=== PATIENT | male | born 1935 | race Caucasian/White ===

== ENCOUNTER 2016-05-19 14:47 | Observation (INO) | payer OTHER ==
[~2016-05-19] VITALS: Ht 177.8 cm; Wt 137.0 kg
--- NOTE | 2016-05-19 17:57 | DIAGNOSTIC IMAGING REPORT ---
PROCEDURE: XR CHEST 1 VIEW INDICATION: FAILURE TO THRIVE TECHNIQUE: Portable AP view (1740 hours) COMPARISON: Compared to chest x-ray on 10/02/2015 FINDINGS: Allowing for suboptimal inspiration, there is mild volume loss at the lung bases. Lungs are otherwise clear. Heart and mediastinum are normal. Thorax is normal. IMPRESSION: 1. Allowing for suboptimal inspiration, negative chest.
--- NOTE | 2016-05-19 19:41 | ED ORDER SUMMARY ---
..... Patient: GRIS RAJPUT OrderSheet Merged With [facility] VisitID: [id number] [place] [address] 80y, M Registration Date/Time: 05/19/2016 ORDER SHEET Weight: 99 kg (stated) Allergies: None GENERAL ORDERS: Animal Eviscerator (Continuous) (15:11 05/19/2016 Sanjuanita MCMAHON) (15:23 RCollier R.N.) CBC w Diff Urgent (15:12 05/19/2016 Sanjuanita MCMAHON) (Ack 15:15 Junior) (16:45 RCollier R.N.) CMP Urgent (15:12 05/19/2016 Sanjuanita MCMAHON) (Ack 15:15 Junior) (16:45 RCollier R.N.) UA-Culture if indicated Urgent (15:12 05/19/2016 Sanjuanita MCMAHON) (Ack 15:15 Junior) (16:45 RCollier R.N.) Amylase Urgent (15:12 05/19/2016 Sanjuanita MCMAHON) (Ack 15:15 Junior) (16:45 RCollier R.N.) Lipase Urgent (15:12 05/19/2016 Sanjuanita MCMAHON) (Ack 15:15 Junior) (16:45 RCollier R.N.) CPK Urgent (15:12 05/19/2016 Sanjuanita MCMAHON) (Ack 15:15 Junior) (16:45 RCollier R.N.) Troponin-I Urgent (15:12 05/19/2016 Sanjuanita MCMAHON) (Ack 15:15 Junior) (16:45 RCollier R.N.) EKG - ER Stat (15:12 05/19/2016 Sanjuanita MCMAHON) (15:23 RCollier R.N.) Pulse oximeter (15:12 05/19/2016 Sanjuanita MCMAHON) (15:23 RCollier R.N.) Urine Drug Screen Urgent (15:34 05/19/2016 Sanjuanita MCMAHON) (Ack 15:41 Junior) (16:45 RCollier R.N.) TSH Urgent (16:36 05/19/2016 Sanjuanita MCMAHON) (Ack 16:53 Junior) (17:48 Tl R.N.) Chest 1V Urgent (16:54 05/19/2016 Sanjuanita MCMAHON) (Ack 16:55 Junior) (17:48 Tl R.N.) MEDICATION ORDERS: - (levothyroxine 125 g by mouth now) (20:36 05/19/2016 Sanjuanita MCMAHON) (Cancelled: Patient [id number] Faye R.N.) IV FLUIDS: IV NS : initial bolus 500 mL (1000 mL/hr), then 125 mL/hr for 4h (NOW); Urgent (15:12 05/19/2016 Sanjuanita MCMAHON) (Ack 15:13 Efrain R.N.) (16:45 Efrain R.N.) ORDER SHEET NOTES: [Electronically signed by Eran Guadarrama MD (21:19 05/19/2016)] [Electronically signed by Radha López R.N. (23:17 05/19/2016)] [Electronically locked/signed by Radha López R.N. (23:17 05/19/2016)]
--- NOTE | 2016-05-19 19:41 | ED CLINICAL REPORT ---
Clinical Report - Physicians/Mid Levels [facility] [address] [place] [address] 05/19/2016 14:51 Patient: GRIS RAJPUT Time Seen: 15:12. Arrived- By ambulance. Historian- patient and EMS personnel. History limited by vague historian. Physical Exam limited by poor cooperation. HISTORY OF PRESENT ILLNESS Chief Complaint: Altered mental status. This started today EMS was called to his house because he was on the floor at home and wanted help getting up. he was reportedly spitting up white phlegm. However, he subsequently refused transport. Apparently with his 's urging he eventually agreed to come in. (the patient was brought in by EMS with reports of increased confusion and agitation. Paramedics report that at his home he was lying in urine and was covered in feces. There was feces throughout the house as well. They report that they have contacted Adult Protective Services as they are concerned about an unsafe living situation. It is unclear whether he has been taking any of his medications. The patient appears very confused, hard of hearing and is not cooperative with a history or examination.). REVIEW OF SYSTEMS Unobtainable due to patient's uncooperativeness. PAST HISTORY Problems: Dehydration. Cellulitis. Tinea Cruris. Dementia. Changed Mental Status. Hypoglycemia. Lung Disease. Skin Rash. Weakness. Contusion. Hypomagnesemia. Failure To Thrive. COPD - Chronic Obstructive Pulmonary Disease. Cardiomegaly. Thyroid Disease. Gastroesophageal Reflux. Hyperlipidemia. Fall. Atypical Chest Pain. Obesity. Abnormal Liver Function Test. Hyponatremia. Diabetes Mellitus. Hypertension. Additional Surgeries: Appendectomy. Cholecystectomy. Hernia Repair. Knee Surgery. Tonsillectomy. Medications: Donepezil HCl Oral (Tablet 10 mg) 1/2 tablet, daily. Folic Acid Oral. Isosorbide Mononitrate ER Oral 30 mg , daily. Lantus SoloStar Subcutaneous 25 units, at night. Meds pulled from prior visit: pt. does not recall. NovoLOG Subcutaneous 5 units, before meals. PARoxetine HCl Oral (Tablet 40 mg) 1 tablet, daily. Synthroid Oral 125 mcg, daily. Tamsulosin HCl Oral 0.4 mg, daily. Allergies: None. SOCIAL HISTORY The patient lives with spouse. Has poor social support. FAMILY HISTORY Unable to obtain family medical history due to patient's altered mental status. ADDITIONAL NOTES The nursing notes have been reviewed. PHYSICAL EXAM Vital Signs: 05/19/2016 14:58 BP: 116/39. HR: 73. RR: 18. O2 saturation: 92%. Temp: 97.4 F. Messina-Landrum pain scale: 4/10. Have been reviewed. Appearance: The patient is confused and restless and appears agitated. Eyes: Pupils equal, round and reactive to light. ENT: Pharynx normal. Neck: Normal inspection. Neck supple. No meningeal signs or JVD. CVS: Normal heart rate and rhythm. Heart sounds normal. Respiratory: No respiratory distress. Breath sounds normal. Abdomen: No visible injury. Soft and nontender. Bowel sounds normal. No organomegaly. No mass. Obese. Skin: Skin warm and dry. Pallor. Extremities: Non-pitting edema of the lower extremities. Extremities exhibit normal ROM. No calf tenderness. LABS, X-RAYS, AND EKG EKG: Normal EKG. Rate: 77. Changes present when compared to prior EKG. (02 Oct 2015at that time the machine reported left axis deviation. Today's study is unremarkable.). The study has been independently viewed by me. Chest X-ray: (MPRESSION: 1. Allowing for suboptimal inspiration, negative chest.). The X-rays were interpreted by the radiologist and contemporaneously by me. Laboratory Tests: UA-Culture if indicated: (GARY: 05/19/2016 16:28) ( MsgRcvd 05/19/2016 17:05) Final results Test Result Flag Units (Reference) URINE COLOR YELLOW URINE APPEARANCE CLEAR URINE GLUCOSE NEGATIVE (NEGATIVE) URINE BILIRUBIN NEGATIVE (NEGATIVE) URINE KETONE NEGATIVE (NEGATIVE) URINE SPECIFIC GRAVITY >= 1.030 (1.010-1.030) URINE PH 5.5 (5.0-8.0) URINE PROTEIN 2+ (NEGATIVE) URINE UROBILINOGEN 0.2 EU/dL (0.2-1.0) URINE NITRITE NEGATIVE (NEGATIVE) URINE BLOOD 2+ (NEGATIVE) URINE LEUK ESTERASE NEGATIVE (NEGATIVE) URINE RBC 3-5 rbc/hpf (0-1) URINE WBC 3-5 wbc/hpf (0-1) URINE EPITHELIAL CELLS 3-5 EPI/hpf (0-5) URINE BACTERIA FEW (1+) (NONE SEEN) URINE COMMENT CULT NOT INDICATED 2+ [id number] HYALINE CAST/LPFURINE CULTURES ARE SET-UP BASED ON THE FOLLOWING CRITERIA:POSITIVE NITRITEPOSITIVE LEUKOCYTE ESTERASEGREATER THAN 10 WHITE BLOOD CELLSMODERATE (2+) OR GREATER BACTERIA CBC w Diff: (GARY: 05/19/2016 15:42) ( [facility] 05/19/2016 15:54) Final results Test Result Flag Units (Reference) WHITE BLOOD COUNT 8.9 K/uL (4.5-11.5) RED BLOOD COUNT 4.41 L M/uL (4.50-5.90) HEMOGLOBIN 13.3 L gm/dL (13.5-17.5) HEMATOCRIT 40.1 L % (41.0-53.0) MEAN CELL VOLUME 91 fL (80-100) MEAN CORPUSCULAR HGB 30 pg (26-34) MEAN CORPUSCULAR HGB CONC 33 g/dL (31-37) RED CELL DISTRIBUTION WIDTH 14.0 % (11.6-14.8) PLATELET COUNT 230 K/uL (150-400) NEUTROPHIL % 83.1 H % (50-75) LYMPH % 9.3 L % (25-40) MONO % 6.3 % (3-14) EOSINOPHIL % 1.1 % (0-4) BASOPHIL % 0.2 % (0-2) TSH: (GARY: 05/19/2016 15:42) ( [facility] 05/19/2016 17:03) Final results Test Result Flag Units (Reference) THYROID STIMULATING HORMONE 4.353 H uIU/mL (0.30-3.74) Urine Drug Screen: (GARY: 05/19/2016 16:28) ( [facility] 05/19/2016 16:48) Final results Test Result Flag Units (Reference) AMPHETAMINE/METHAMPHETAMINE NEGATIVE (NEGATIVE) BARBITURATE NEGATIVE (NEGATIVE) BENZODIAZEPINE NEGATIVE (NEGATIVE) CANNABINOID NEGATIVE (NEGATIVE) COCAINE NEGATIVE (NEGATIVE) ECSTASY NEGATIVE (NEGATIVE) METHADONE NEGATIVE (NEGATIVE) OPIATE NEGATIVE (NEGATIVE) The urine drug screen is a qualitative screening test fordrug overdose and abuse. All screen results should beconsidered as presumptive.Drugs screened for are as follows:BenzodiazepinesCocaineAmphetamines/MetamphetaminesTHC (Tetrahydrocannabinol)OpiatesBarbituratesEcstasyMethadonePositive results are unconfirmed. For confirmation, notifythe lab for the specimen to be sent to the reference lab.All confirmations must be performed by a differentmethodology.The ingestion of natural herbal and plant productscontaining Ephedra/Ephedra metabolites can produce in urineone or more substances capable of cross reacting withamphetamine/methamphetamine immunoassays. These testsprovide a preliminary result only. A more specificalternative chemical method must be used to obtain aconfirmed analytical result. CMP: (GARY: 05/19/2016 15:42) ( MsgRcvd 05/19/2016 16:11) Final results Test Result Flag Units (Reference) GLUCOSE 151 H mg/dL (70-110) BUN 42 H mg/dL (7-18) CREATININE 1.2 mg/dL (0.6-1.3) Estimated GFR >60 mL/min Estimated GFR- >60 mL/min Note: Persistent reduction over 3 months in eGFR<60 mL/min/1.73 m2 defines CKD. Patients with eGFR values>=60 mL/min/1.73 m2 may also have CKD if evidence ofpersistent proteinuria. Additional information may be foundat www.kidney.org. SODIUM 139 mmol/L (136-145) POTASSIUM 4.9 mmol/L (3.5-5.1) CHLORIDE 104 mmol/L (98-107) CARBON DIOXIDE 26 mmol/L (21-32) CALCIUM 8.4 L mg/dL (8.5-10.1) TOTAL PROTEIN 7.1 g/dL (6.4-8.2) ALBUMIN 2.9 L g/dL (3.3-5.0) BILIRUBIN, TOTAL 0.5 mg/dL (0.0-1.0) ALKALINE PHOSPHATASE 119 H U/L (46-116) AST (SGOT) 18 U/L (15-37) ALT (SGPT) 23 U/L (12-78) LIPASE 527 H U/L (73-393) AMYLASE 130 H U/L (25-115) CPK 89 U/L (24-260) TROPONIN I <0.05 ng/mL (0.00-1.5) TROPONIN REFERENCE RANGE:<0.1 NEGATIVE0.1-1.5 INDETERMINANT>1.5 POSITIVE . PROGRESS AND PROCEDURES Course of Care: Patient is stable. Discussed case with on-call health care provider, (Ishaan - consult performed in the ER). Reviewed test results and need for additional work-up. Agreed upon treatment plan, need for patient follow-up and decision to place in observation. Patient/family counseled. Old medical records reviewed. Disposition orders written (in Rhapsody). Disposition: Admitted. Observation. CLINICAL IMPRESSION Changed mental status. Pancreatitis. Hypothyroidism. 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 (Electronically signed by Eran Guadarrama MD 05/19/2016 21:19)
--- NOTE | 2016-05-19 19:41 | ED NURSING NOTES ---
Clinical Report - Nurses [facility] [address] [place] [address] 05/19/2016 14:51 Patient: GRIS RAJPUT TRIAGE Triage time 14:58. Acuity: LEVEL 3. Chief Complaint: NAUSEA and VOMITING. Alert. --15:06 Zaynab Luna R.N. 14:58 05/19/16. BP: 116/39. HR: 73. RR: 18. O2 saturation: 92% on room air. Temp: 97.4 F (oral). Messina-Landrum pain scale: 4/10. --15:06 Zaynab Luna R.N. Weight: 99 kg stated. Height/Length: 69 inches Per Patient. BMI: 32.3. --15:06 Zaynab Luna R.N. Medications Donepezil HCl Oral (Tablet 10 mg) 1/2 tablet, daily. Folic Acid Oral. Isosorbide Mononitrate ER Oral 30 mg , daily. Lantus SoloStar Subcutaneous 25 units, at night. Meds pulled from prior visit: pt. does not recall. NovoLOG Subcutaneous 5 units, before meals. PARoxetine HCl Oral (Tablet 40 mg) 1 tablet, daily. Synthroid Oral 125 mcg, daily. Tamsulosin HCl Oral 0.4 mg, daily. --14:59 Zaynab Luna R.N. Allergies None. --14:59 Zaynab Luna R.N. History Arrived by EMS. Primary physician (john). ( EMS was called to pts house because pt was on the floor at home and wanted help getting up. pt was vomiting and refused to transport, eventually agreed to come in.). This started today. 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 ( EMS reports they are notifying APS of living conditions, due to pt and being unable to care for self.). FUNCTIONAL ASSESSMENT: Functional assessment performed: uses wheelchair; cognitive impairment- senile dementia. --15:06 Zaynab Luna R.N. PROBLEMS: Cellulitis. Tinea Cruris. Dementia. Changed Mental Status. Lung Disease. Hypomagnesemia. COPD - Chronic Obstructive Pulmonary Disease. Cardiomegaly. Thyroid Disease. Gastroesophageal Reflux. Hyperlipidemia. Atypical Chest Pain. Obesity. Abnormal Liver Function Test. Diabetes Mellitus. --15:00 Zaynab Luna R.N. ADDITIONAL SURGERIES: Appendectomy. Cholecystectomy. Hernia Repair. Knee Surgery. Tonsillectomy. --15:00 Zaynab Luna R.N. Interventions ID band on patient. To treatment room. --15:06 Zaynab Luna R.N. PHYSICAL ASSESSMENT To room via stretcher. Patient gowned. GENERAL / NEURO / PSYCH: Alert. Appears in no acute distress. RESPIRATORY: Respirations not labored. Cough. CVS: Capillary refill less than 2 seconds. SKIN: Erythematous, weeping skin rash with an erythematous base located in skin folds and on the genitalia. --16:12 Zaynab Luna R.N. NURSING PROGRESS NOTES 15:43 05/19/2016 Site #1 started via IV in the right forearm with an 20g angiocath, with aseptic technique and good blood return; one attempt. Blood drawn: rainbow set. Labeled in the presence of the patient and sent to the lab. Saline lock flushed with 10 mL saline. --15:59 Izzy Rios R.N. 15:49 05/19/2016 Site #1 removed. Bandaid applied. --15:59 Izzy Rios R.N. 15:54 05/19/2016 Site #1 relocated to the left wrist with an 22g angiocath, with aseptic technique and good blood return; one attempt. Saline lock flushed with 10 mL saline. --16:00 Izzy Rios R.N. Two patient identifiers checked. Call light placed in reach. Side rails up x 2. Bed placed in lowest position. Brakes of bed on. --16:09 Zaynab Luna R.N. ( multiple attempts made to do EKG upon arrival. Pt unwilling to lay on back or to otherwise cooperate for leads to be placed.). --16:14 Zaynab Luna R.N. 16 fr in/out catheterization. During procedure hand hygiene observed and sterile equipment and aseptic technique used. Return of 75 mL yellow-colored lien-colored urine. It was a complicated placement. He tolerated procedure fair (procedure assisted by ROBBY Canales Tech.). Patient ID band checked for patient name and birthdate. Catheterized urine collected with return of yellow-colored lien-colored urine; sample sent to lab. Specimen labeled in the presence of the patient. --16:31 Zaynab Luna R.N. Certified Prosthetist/Orthotist provided (Catheterization by RN). --16:35 Ally Dobson 15:55 05/19/2016 Started bag #1 1000 mL IV Fluids IV NS (Saline); at 500 mL/hr via site #1 via IV pump. Allergies verified and confirmed 5 rights. IV patency established. IV site checked: no pain, redness, or swelling. IV flushed thoroughly pre- and post-medication administration (started by ARLINE Ochoa). --16:45 Zaynab Luna R.N. 16:49 05/19/2016 IV Fluids IV NS via IV site #1 Rate Changed: bag #1 decreased to 125 mL/hr via IV pump. IV patency established. IV site checked: no pain, redness, or swelling. IV flushed thoroughly. Confirmed 5 Rights (500ml bolus complete.). --16:49 Zaynab Luna R.N. Warming measures: blanket applied. --16:52 Zaynab Luna R.N. 17:22 05/19/16. ( Pt will not cooperate for 12 lead EKG. Pt's called @1700 to get an update on his status.). --17:22 Silas Villanueva R.N. 17:35. ( EKG performed by tech shown to phys.). --17:46 Mee Obrien 18:09 05/19/16. --18:09 Елена Gregg R.N. 18:07 05/19/16. BP: 139/60 (small adult cuff) taken on the left arm, while lying. HR: 72. RR: 18 (regular). O2 saturation: 94% on room air. --18:09 Елена Gregg R.N. 18:50 05/19/16. ( Patient resting, easily aroused, doing well). --18:50 Елена Gregg R.N. 15:45 05/19/16. BP: 89/53. O2 saturation: 87% on room air. --18:52 Елена Gregg R.N. 17:45 05/19/16. BP: 139/60 (regular adult cuff) taken on the left arm, while lying. RR: 18. O2 saturation: 86% on room air. --18:52 Елена Gregg R.N. 19:57 05/19/16. BP: 136/47 (regular adult cuff) taken on the left arm, via an automated monitor, while lying. HR: 74. RR: 18. O2 saturation: 96% on room air. Temp: 97.6 F (oral). Pain level now: 0/10. --20:00 Radha López R.N. Reassurance given. Reassessment after fluids administered. He reports no complaints and he is calm. ( Pt alert to self, [facility], Pt alert to self only, confused, pt is incontinent, will attempt to clean and change linens, family updated over the phone, aware of pt getting admitted. IV infusing as ordered.). Two patient identifiers checked. --20:00 Radha López R.N. 20:17 05/19/2016 IV Fluids IV NS Discontinued: bag #1 completed upon admission. Total amount infused: 1000 mL. IV patency established. IV site checked: no pain, redness, or swelling. IV flushed thoroughly. --23:17 Radha López R.N. DISPOSITION / DISCHARGE Departure time: 2030 PM. Condition at departure: improved and stable. The goals identified in the patient's plan of care were met. Transported via stretcher by transport team. Report was given to a nurse via a phone call. Report included patient's care, treatment, medications, reviewed medication reconcilliation, and condition (including any recent changes or anticipated changes). All questions were answered. Report was acknowledged and care was transferred. (ARLINE Thompson). ( Pt transferred via stretcher, attempted to give synthroid but refused. ARLINE Thompson made aware). FALL RISK ASSESSMENT: Fall risk assessment completed. No fall risk identified. --23:14 Radha López R.N. 19:50 05/19/2016 Site #1 reassessed; patent, infusing well and no signs of infection or infiltration. Good blood return present. --23:15 Radha López R.N. 20:30 late entry - PM. --23:16 Radha López R.N. 20:15 05/19/16. BP: 125/87. HR: 78. RR: 15. O2 saturation: 95% on room air. Temp: 97.3 F (oral). Pain level now: 0/10. --23:16 Radha López R.N. Locked/Released at 05/19/2016 23:17 by Radha López R.N.
--- NOTE | 2016-05-19 19:41 | ED ORDER SUMMARY ---
..... Patient: GRIS RAJPUT OrderSheet [facility] VisitID: [id number] [address] [place] [address] 80y, M Registration Date/Time: 05/19/2016 ORDER SHEET Weight: 99 kg (stated) Allergies: None GENERAL ORDERS: Associate Technician (Continuous) (15:11 05/19/2016 Sanjuanita MCMAHON) (15:23 RCollier R.N.) CBC w Diff Urgent (15:12 05/19/2016 Sanjuanita MCMAHON) (Ack 15:15 Junior) (16:45 RCollier R.N.) CMP Urgent (15:12 05/19/2016 Sanjuanita MCMAHON) (Ack 15:15 Junior) (16:45 RCollier R.N.) UA-Culture if indicated Urgent (15:12 05/19/2016 Sanjuanita MCMAHON) (Ack 15:15 Junior) (16:45 RCollier R.N.) Amylase Urgent (15:12 05/19/2016 Sanjuanita MCMAHON) (Ack 15:15 Junior) (16:45 RCollier R.N.) Lipase Urgent (15:12 05/19/2016 Sanjuanita MCMAHON) (Ack 15:15 Junior) (16:45 RCollier R.N.) CPK Urgent (15:12 05/19/2016 Sanjuanita MCMAHON) (Ack 15:15 Junior) (16:45 RCollier R.N.) Troponin-I Urgent (15:12 05/19/2016 Sanjuanita MCMAHON) (Ack 15:15 Junior) (16:45 RCollier R.N.) EKG - ER Stat (15:12 05/19/2016 Sanjuanita MCMAHON) (15:23 RCollier R.N.) Pulse oximeter (15:12 05/19/2016 Sanjuanita MCMAHON) (15:23 RCollier R.N.) Urine Drug Screen Urgent (15:34 05/19/2016 Sanjuanita MCMAHON) (Ack 15:41 Junior) (16:45 RCollier R.N.) TSH Urgent (16:36 05/19/2016 Sanjuanita MCMAHON) (Ack 16:53 Junior) (17:48 Tl R.N.) Chest 1V Urgent (16:54 05/19/2016 Sanjuanita MCMAHON) (Ack 16:55 Junior) (17:48 Tl R.N.) MEDICATION ORDERS: - (levothyroxine 125 g by mouth now) (20:36 05/19/2016 Sanjuanita MCMAHON) (Cancelled: Patient [id number] Faye R.N.) IV FLUIDS: IV NS : initial bolus 500 mL (1000 mL/hr), then 125 mL/hr for 4h (NOW); Urgent (15:12 05/19/2016 Sanjuanita MCMAHON) (Ack 15:13 Efrain R.N.) (16:45 Efrain R.N.) ORDER SHEET NOTES: [Electronically signed by Eran Guadarrama MD (21:19 05/19/2016)] [Electronically signed by Radha López R.N. (23:17 05/19/2016)] [Electronically locked/signed by Radha López R.N. (23:17 05/19/2016)]
[2016-05-19 22:13] VITALS: BP 123/55
--- NOTE | 2016-05-19 22:14 | NUR ---
PT ARRIVED TO FLOOR AROUND 2150 VIA GURNEY FROM THE ED. A&OX1, UNAWARE OF TIME AND PLACE. NO C/O PAIN OR NAUSEA. RED RASH ON GROIN AND ON BUTTOCKS, BARRIER CREAM APPLIED. REDNESS ON SOLES OF FEET, YELLOW SOCKS APPLIED. NO SKIN BREAKDOWN BESIDES RASH ON PTS JINA AREA. VSS. RESTING W/ CALL LIGHT IN REACH.
--- NOTE | 2016-05-19 23:17 | ED MED RECONCILIATION SUMMARY ---
Patient: GRIS RAJPUT Medication Reconciliation Report [facility] VisitID: [id number] [address] [place] [address] 80y, M Registration Date/Time: 05/19/2016 Weight: 99 kg Height/Length: 69 in. BMI: 32.3 ALLERGIES: None The patient's Home Medications are listed below: THE FOLLOWING MEDICATIONS NEED TO BE RECONCILED: Donepezil HCl Oral (10 mg) 1/2 tablet, daily Folic Acid Oral Isosorbide Mononitrate ER Oral 30 mg , daily Lantus SoloStar Subcutaneous 25 units, at night Meds pulled from prior visit: pt. does not recall NovoLOG Subcutaneous 5 units, before meals PARoxetine HCl Oral (40 mg) 1 tablet, daily Synthroid Oral 125 mcg, daily Tamsulosin HCl Oral 0.4 mg, daily The source(s) of the original Home Medication information: Not obtained. The following Medications were given to the patient in the Emergency Department: IV NS IV Fluids bolus 0, then 500 mL/hr, administered: 05/19/2016 3:55:00 PM The following Medications were prescribed to the patient: None.
--- NOTE | 2016-05-19 23:17 | ED MAR SUMMARY ---
..... Medication Administration Record [facility] [address] [place] [address] Patient: GRIS RAJPUT Visit ID: [id number] 80y, M Weight: 99.0 kg Height/Length: 69 in BMI: 32.3 ALLERGIES: None Start 15:55 05/19/2016 Zaynab Luna RUsmanNUsman, Stop 20:17 05/19/2016 Radha López RUsmanNUsman Medication Administered: IV NS (SALINE), Dose: IV Fluids, Rate: 500 mL/hr, Dispensed: 1000 mL bag, Site: #1 left wrist. Medication Ordered: IV NS : initial bolus 500 mL (1000 mL/hr), then 125 mL/hr for 4h (NOW); Urgent.
--- NOTE | 2016-05-19 23:17 | ED MED RECONCILIATION SUMMARY ---
Patient: GRIS RAJPUT Medication Reconciliation Report [facility] VisitID: [id number] [address] [place] [address] 80y, M Registration Date/Time: 05/19/2016 Weight: 99 kg Height/Length: 69 in. BMI: 32.3 ALLERGIES: None The patient's Home Medications are listed below: THE FOLLOWING MEDICATIONS NEED TO BE RECONCILED: Donepezil HCl Oral (10 mg) 1/2 tablet, daily Folic Acid Oral Isosorbide Mononitrate ER Oral 30 mg , daily Lantus SoloStar Subcutaneous 25 units, at night Meds pulled from prior visit: pt. does not recall NovoLOG Subcutaneous 5 units, before meals PARoxetine HCl Oral (40 mg) 1 tablet, daily Synthroid Oral 125 mcg, daily Tamsulosin HCl Oral 0.4 mg, daily The source(s) of the original Home Medication information: Not obtained. The following Medications were given to the patient in the Emergency Department: IV NS IV Fluids bolus 0, then 500 mL/hr, administered: 05/19/2016 3:55:00 PM The following Medications were prescribed to the patient: None.
--- NOTE | 2016-05-19 23:17 | ED DISCHARGE INSTRUCTIONS ---
Patient: GRIS RAJPUT General Instructions [facility] VisitID: [id number] [place] [address] 80y, M Registration Date/Time: 05/19/2016 Changed mental status. Pancreatitis. Hypothyroidism. ADDITIONAL INFORMATION Pancreatitis The pancreas is an organ in the left upper abdomen that secretes digestive juices into the stomach. Pancreatitis is an inflammation of the pancreas. This may occur for various causes including heavy alcohol use, gall stone blockage of the outflow duct from the pancreas, certain medicines and viral illness. Sometimes the cause of pancreatitis cannot be found. Moderate to severe illness requires being treated in the hospital. Milder attacks of pancreatitis can be treated at home. Home Care: 1) Absolutely NO ALCOHOL. 2) Rest in bed or sit up in a chair until you feel better. 3) Eat small more frequent meals rather than a few large meals each day. 4) Follow a high protein, high carbohydrate, low fat diet. 5) If you were given medicine for pain or vomiting, take it as prescribed. Follow Up with your doctor or as directed by our staff for further evaluation. Get Prompt Medical Attention if any of the following occur: -- Continued or worsening pain in the abdomen -- Repeated vomiting: unable to keep down liquids -- Dizziness, weakness or fainting -- Vomiting blood or blood in the stool (black or red color) -- Fever over 100.4 F (38.0 C) -- Severe muscle cramps or seizure -- Trouble breathing or fast breathing (over 25 breaths/minute) -- Jaundice (yellow color of the skin or eyes) You have been given the following additional information: Pancreatitis (Electronically signed by Eran Guadarrama MD 05/19/2016 21:19)
--- NOTE | 2016-05-19 23:17 | ED MAR SUMMARY ---
..... Medication Administration Record [facility] [address] [place] [address] Patient: GRIS RAJPUT Visit ID: [id number] 80y, M Weight: 99.0 kg Height/Length: 69 in BMI: 32.3 ALLERGIES: None Start 15:55 05/19/2016 Zaynab Luna RUsmanNUsman, Stop 20:17 05/19/2016 Radha López RUsmanNUsman Medication Administered: IV NS (SALINE), Dose: IV Fluids, Rate: 500 mL/hr, Dispensed: 1000 mL bag, Site: #1 left wrist. Medication Ordered: IV NS : initial bolus 500 mL (1000 mL/hr), then 125 mL/hr for 4h (NOW); Urgent.
--- NOTE | 2016-05-19 23:17 | ED DISCHARGE INSTRUCTIONS ---
Patient: GRIS RAJPUT General Instructions [facility] VisitID: [id number] [place] [address] 80y, M Registration Date/Time: 05/19/2016 Changed mental status. Pancreatitis. Hypothyroidism. ADDITIONAL INFORMATION Pancreatitis The pancreas is an organ in the left upper abdomen that secretes digestive juices into the stomach. Pancreatitis is an inflammation of the pancreas. This may occur for various causes including heavy alcohol use, gall stone blockage of the outflow duct from the pancreas, certain medicines and viral illness. Sometimes the cause of pancreatitis cannot be found. Moderate to severe illness requires being treated in the hospital. Milder attacks of pancreatitis can be treated at home. Home Care: 1) Absolutely NO ALCOHOL. 2) Rest in bed or sit up in a chair until you feel better. 3) Eat small more frequent meals rather than a few large meals each day. 4) Follow a high protein, high carbohydrate, low fat diet. 5) If you were given medicine for pain or vomiting, take it as prescribed. Follow Up with your doctor or as directed by our staff for further evaluation. Get Prompt Medical Attention if any of the following occur: -- Continued or worsening pain in the abdomen -- Repeated vomiting: unable to keep down liquids -- Dizziness, weakness or fainting -- Vomiting blood or blood in the stool (black or red color) -- Fever over 100.4 F (38.0 C) -- Severe muscle cramps or seizure -- Trouble breathing or fast breathing (over 25 breaths/minute) -- Jaundice (yellow color of the skin or eyes) You have been given the following additional information: Pancreatitis (Electronically signed by Eran Guadarrama MD 05/19/2016 21:19)
--- NOTE | 2016-05-20 00:27 | HISTORY AND PHYSICAL ---
ADMITTED: 05/19/2016 CHIEF COMPLAINT: 1. Weakness 2. Fall at home 3. Some confusion HISTORY OF PRESENT ILLNESS: The patient is an 80-year-old white male who has developed some increased weakness and also some nausea, stomach upset and some loose stools, particularly today. He apparently had a fall and ended up on the floor at home this afternoon. His called EMS to help him up. She felt, however, that he really was weaker and more confused than he usually is and quite changed from his baseline. He was somewhat oppositional to care and suggestions from his and paramedics that he be transported to [facility] Emergency Department. After a while, however, he acquiesced and allowed the paramedics to get him in the ambulance where they can bring him down to the hospital emergency department. The patient's is not available and other details are not available. MEDICAL/SURGICAL HISTORY: Past medical history: Remarkable for mild dementia problems, COPD, adult-onset diabetes, hypertension, hypothyroidism, hyperlipidemia, morbid obesity, knee joint arthritis, hypothyroidism. Past surgical history: Remarkable for bilateral knee joint replacements, tonsillectomy, appendectomy, cholecystectomy, hernia repairs and right iliac artery aneurysm repair. MEDICATIONS: Not really known present. Review of old chart indicates that he had been takin. Donepezil 5 mg daily. 2. Isosorbide mononitrate 30 mg daily. 3. Lantus insulin 25 units daily. 4. NovoLog insulin 5 units before meals. 5. Pravastatin 40 mg daily. 6. Synthroid 0.125 mg daily. 7. Tamsulosin 0.4 mg daily, around the time of his last hospitalization about 4 years ago. ALLERGIES: 1. NONE. SOCIAL HISTORY: Indicates the patient lives with his in [place]. She is disabled due to lower back problems and weakness in her lower legs. They both get around with power wheelchairs. He smoked years ago, but quit about 25 or 30 years ago. He is not clear about alcohol use. He is not sure of his current medical provider. He was basically fired from office years ago for verbal abuse to staff members, primarily from his . FAMILY HISTORY: From old chart indicates that his father had problems with alcohol use and around age 60 of GI bleeding. The patient's mother around age 24 of leukemia. REVIEW OF SYSTEMS: HEENT: Has been okay. He is very hard of hearing. Respiratory : Has been okay. Gastrointestinal: Remarkable for some nausea, stomach upset, some episodes of emesis and loose stools. Cardiovascular: Has been okay. Genitourinary: Remarkable for some incontinence of urine. Musculoskeletal: Remarkable for back pain and some limited mobility related to his morbid obesity. Neurologic: Remarkable for some memory difficulties and confusion. PHYSICAL EXAMINATION: GENERAL: Reveals the patient to be markedly obese. He is hard of hearing. He is sometimes oppositional, not cooperative and sometimes much more cooperative. VITAL SIGNS: Blood pressure is in the 116/70 range with pulse in the 70s. Oxygen saturation is 92% on room air. Temperature is 97.4. HEENT: Head is normal. Ear canals and tympanic membranes are normal. Eyes show conjugate gaze with normal extraocular movements. Fundi are not well seen. Nose and throat are clear. The patient is currently edentulous. He may have dentures that he uses, but did not bring these with. Nose and throat are clear. CHEST: Reveals decreased breath sounds throughout with I:E ratio about 1:1 and a few faint scattered rhonchi. HEART: Sounds are distant. There are no distinct murmurs or gallops. ABDOMEN: Markedly obese, large overhanging pannus. There is no tenderness. GENITALIA: Shows a questionably probably circumcised penis that is somewhat retracted in the remaining foreskin. The penis is normal when exposed. Testes are normal and somewhat atrophic. There is no evidence of hernia. RECTAL: Reveals no masses. Prostate gland is not easily felt and does not seem to be at all enlarged. Stool is brownish and guaiac negative. EXTREMITIES: Show no significant edema. There are scars over both knees from prior knee joint replacement surgeries. +1 dorsalis pedis pulses and +2 posterior tibial pulses are noted bilaterally. SKIN: Shows rather diffuse erythema in all of the skin fold areas. There is some slight erythema and scaling of the soles of the feet. NEUROLOGIC: Reveals cranial nerves to be basically symmetric. The patient is alert. He is not oriented to time or distinctly to place. Motor strength is symmetric. LAB/IMAGING: Laboratory studies show urinalysis with specific gravity of 1.030, nitrates and leukocyte esterase negative. There is 2+ blood. There is 3-5 red blood cells, 3.5 epithelial cells, 3-5 white blood cells and few bacteria. Urine drug screen is negative. Sodium is 139, potassium 4.9, chloride 104, CO2 26, glucose 151, creatinine 1.2, BUN 42. Alkaline phosphatase is 119, SGOT is 18, SGPT is 22. Lipase is elevated at 529, amylase is elevated at 130. CPK is 85. Troponin I is less than 0.05. TSH is 4.35. EKG: Shows normal sinus rhythm with a rate of 172. There are no ST-segment elevations or depressions and basically this is stable EKG. Chest x-ray: Shows somewhat poor inspiration with some volume loss in the lower lung garay. There is no distinct infiltrate or other abnormality. IMPRESSION: 1. The patient presented with nausea, vomiting and weakness, which maybe due to low-grade pancreatitis. Cause of this is not clear. He also has some increased confusion, which may be related to this and related to mild dehydration. 2. Other problems include adult-onset diabetes. 3. Morbid obesity. 4. History of surgeries as noted. 5. He does have significantly elevated BUN suggesting dehydration. PLAN: The patient is admitted for hydration and observation. He will have blood tests repeated in the morning and amylase and lipase repeated. He did have a somewhat elevated TSH just slightly above normal. He does have a history of hypothyroidism and may need adjustment of his thyroid medication. Blood tests will be repeated in the morning to see if his pancreatitis is improving. He will be n.p.o. except for some limited ice chips and clear liquids tonight. He will be continued on intravenous fluids for hydration. It would be appropriate to contact his in the morning regarding patient's medications and current medical provider. As code status is not really known and for the time being he will be FULL CODE. He is not able to comprehend well enough to discuss this currently.
[2016-05-20 02:00] VITALS: BP 131/75
--- NOTE | 2016-05-20 08:11 | Progress Note ---
Subjective General Note Date: May 20, 2016 Admission Date: May 19, 2016 Hospital Day: 2 PCP: Unknown Status: Observation Advanced Directive: Full Code Room: 205 Brief History: The patient is a 80-year-old white male with a significant past medical history of dementia, COPD, diabetes mellitus type 2, hypertension, hypothyroidism, hyperlipidemia, obesity, degenerative joint disease, who presented to [facility] emergency department on the day of admission secondary to complaints of generalized weakness, nausea, and diarrhea. [facility] ER evaluation showed the patient to have findings consistent with probable gastroenteritis, pancreatitis and dehydration. Secondary to the above, the patient was admitted by Jett Quiros M.D. for further evaluation and treatment. For other history present illness, past medical history, family history, social history, review of systems, and admission physical examination please see the patient's history and physical examination and ER visit note in the patient's medical record. Subjective: The patient voices no complaints at this time. Denies nausea vomiting. Remains weak. Patient very uncooperative to questioning or physical exam this a.m. Patient requests: None Medications and Allergies Medications Current Medications Sig/Elizabeth Start time Last Medication Dose Route Stop Time Status Admin Clotrimazole See Dose BID 05/20 0900 AC Insts (1) TOP Insulin Human Lispro See Dose ACHS 05/20 0730 AC Insts (2) SC Levothyroxine Sodium 125 MCG 0600 05/20 0600 AC 05/20 PO 0646 Sodium Chloride 1,000 ML ASDIRECTED 05/19 2300 AC IV Dose Instructions: (1)Clotrimazole: APPLY TO AFFECTED AREA (2)Insulin Human Lispro: MEDIUM DOSE: ACCUCHECK AND SLIDING SCALE >>To change sliding scale DISCONTINUE this order and enter a NEW order. Thanks< Allergies Coded Allergies: Hydrocodone (Intermediate, PERSONALITY CHANGES 12/28/13) Physical Exam Vital Signs / I&Os Vital Signs Date Time Temp Pulse Resp B/P Pulse O2 O2 Flow FiO2 Ox Delivery Rate 05/20 0645 98.1 24 93 Room Air 05/20 0200 98.8 78 17 131/75 96 Room Air 05/20 0127 Room Air 05/19 2213 98.1 81 20 123/55 95 Room Air I&O 05/20 0000 05/19 1600 05/19 0800 Intake Total 0 Output Total Balance 0 General Appearance Alert, No acute distress, uncooperative to examination Lungs Normal air movement, scattered rhonchi Cardiovascular Regular rate and rhythm, Normal S1 and S2 Abdomen Normal bowel sounds, Soft, pendulous, degree of obesity hampers examination Extremities No cyanosis, No clubbing Neurological Grossly normal with no focal deficits identified Psych/Mental Status Confused, uncooperative LAB Results Laboratory Tests 05/19 05/19 05/19 1628 1542 1542 Chemistry Plasma Sodium (136 - 145 mmol/L) 139 Plasma Potassium (3.5 - 5.1 mmol/L) 4.9 Plasma Chloride (98 - 107 mmol/L) 104 CO2 (Enzymatic) (21 - 32 mmol/L) 26 BUN (7 - 18 mg/dL) 42 Creatinine (0.6 - 1.3 mg/dL) 1.2 Est GFR ( Amer) (mL/min) >60 Est GFR (Non-Af Amer) (mL/min) >60 Glucose (70 - 110 mg/dL) 151 Plasma Calcium (8.5 - 10.1 mg/dL) 8.4 Total Bilirubin (0.0 - 1.0 mg/dL) 0.5 AST (15 - 37 U/L) 18 ALT (12 - 78 U/L) 23 Alkaline Phosphatase (46 - 116 U/L) 119 Creatine Kinase (24 - 260 U/L) 89 Troponin (0.00 - 1.5 ng/mL) <0.05 Total Protein (6.4 - 8.2 g/dL) 7.1 Albumin (3.3 - 5.0 g/dL) 2.9 Amylase (25 - 115 U/L) 130 Lipase (73 - 393 U/L) 527 TSH 3rd Generation (0.30 - 3.74 uIU/mL) 4.353 Hematology WBC (4.5 - 11.5 K/uL) 8.9 RBC (4.50 - 5.90 M/uL) 4.41 Hgb (13.5 - 17.5 gm/dL) 13.3 Hct (41.0 - 53.0 %) 40.1 MCV (80 - 100 fL) 91 MCH (26 - 34 pg) 30 RDW (11.6 - 14.8 %) 14.0 Neut % (Auto) (50 - 75 %) 83.1 Lymph % (Auto) (25 - 40 %) 9.3 [place] % (Auto) (3 - 14 %) 6.3 Eos % (Auto) (0 - 4 %) 1.1 Baso % (Auto) (0 - 2 %) 0.2 Plt Count, EDTA (150 - 400 K/uL) 230 PUBS MCHC (31 - 37 g/dL) 33 Toxicology Urine Opiates Screen (NEGATIVE) NEGATIVE Urine Methadone Screen (NEGATIVE) NEGATIVE Ur Barbiturates Screen (NEGATIVE) NEGATIVE U Amphetamin/Meth Scrn (NEGATIVE) NEGATIVE MDMA (Ecstasy) Screen (NEGATIVE) NEGATIVE U Benzodiazepines Scrn (NEGATIVE) NEGATIVE Urine Cocaine Screen (NEGATIVE) NEGATIVE U Cannabinoids Screen (NEGATIVE) NEGATIVE Urines Urine Color YELLOW Urine Appearance CLEAR Urine pH (5.0 - 8.0) 5.5 Ur Specific [place] (1.010 - 1.030) >= 1.030 Urine Protein (NEGATIVE) 2+ Urine Ketones (NEGATIVE) NEGATIVE Urine Blood (NEGATIVE) 2+ Urine Nitrite (NEGATIVE) NEGATIVE Urine Bilirubin (NEGATIVE) NEGATIVE Urine Urobilinogen (0.2 - 1.0 EU/dL) 0.2 Ur Leukocyte Esterase (NEGATIVE) NEGATIVE Urine RBC (0 - 1 rbc/hpf) 3-5 Urine WBC (0 - 1 wbc/hpf) 3-5 Ur Epithelial Cells (0 - 5 EPI/hpf) 3-5 Urine Bacteria (NONE SEEN) FEW (1+) Urine Glucose (NEGATIVE) NEGATIVE Urine Comment CULT NOT INDICATED Assessment and Plan Problem List 1. Pancreatitis Plan -Patient with findings of mild pancreatitis -Repeat LFTs, amylase, lipase -Consider CT/ultrasound follow-up laboratory testing -IV fluids -Nothing by mouth status 2. Mental status change Plan -Patient with history of dementia. -Non-cooperative -Slightly confused -Probable baseline status -Continue Aricept -Monitor 3. Hypothyroidism Status Chronic Onset Date Unknown Plan -Patient with history of hypothyroidism -TSH within normal limits -Continue thyroid supplementation 4. Dementia Status Chronic Onset Date Unknown Plan -Patient with history of dementia -Continue Aricept -Monitor 5. Dehydration Status Acute Onset Date Unknown Plan -Patient with findings of mild dehydration -IV fluid therapy -Monitor Current status: Fair, unstable Anticipated discharge date: Anticipated discharge in 1-2 days Anticipated discharge placement: Home versus supervised living situation Patient care time: Time spent in chart review, patient interview, physical exam, CPOE, and care documentation: 25 minutes Visit to patient today: 1 Complexity of care: Moderate E&M Codes Rounding: Inpt-Moderate/03870
--- NOTE | 2016-05-20 09:16 | NUR ---
PT NAUSEATED AND APPARENTLY CONFUSED. STAFF ABLE TO ASSIST PT TO COMMODE TO CHANGE LINEN AND PROVIDE SKIN CARE. PT IS AGITATED, STATES HE FEELS HE IS GOING TO THROW UP. PRN ZOFRAN ORDER OBTAINED AND MED ADMINISTERED. PT RESTING IN BED NOW, MORE COMPLIANT. BED ALARM ON, LINE OF SIGHT WITH NURSE'S STATION, CURTAIN AND DOOR REMAIN OPEN. SCHEDULED MEDS GIVEN ORDERED. WCTM.
[2016-05-20 10:05] VITALS: BP 129/59
--- NOTE | 2016-05-20 14:09 | NUR ---
PATIENT WOULD PREFER TO BE LEFT ALONE TO REST/SLEEP IN BED. WHEN WE TRY TO HELP HIM, HE CAN BE EASILIY FRUSTERATED. THIS AFTERNOON HE IS PARTICIPATING WITH HIS CARE A LITTLE BETTER. WE MOVED HIM FROM TO SO WE CAN USE THE LIFT FOR MOBILITY. HE IS STRONG ENOUGH TO STAND BUT OFTEN PREFERS TO NOT PARTICIPATE. THIS AM HE WAS INCONT BUT THIS AFTERNOON HE HAS WALKED TO THE BATHROOM WITH THE WALKER. HE ACTS LIKE HE IS HARD OF HEARING BUT STATES THAT HE IS NOT. HE HAS EATEN 2 POPCICLES AND HAS TOLERATED THEM WELL. BED ALARM IS ON. WRAPPED HIS IV WITH COBAN TO HELP PROTECT/DISTRACT HIM FROM PICKING ON IT. ROOM NEAR THE NURSES STATION.
[2016-05-20 18:07] VITALS: BP 160/67
--- NOTE | 2016-05-20 18:46 | NUR ---
END SHIFT NOTE: PT HAS BEEN TRYING TO SLEEP IN HIS BED ALL DAY BUT SAT UP IN THE CHAIR FOR A FEW HOURS WHILE HIS DAUGHTER VISITED. PT IS VERY ANGOON. FAMILY STATES HE IS AT HIS BASELINE; DEMENTED, ANGOON, LETHARGIC. PT IS COOPERATIVE AT TIMES, RESISTANT AT OTHER TIMES. HE HAS INTERMITTENTLY COOPERATED WITH VS, ACTIVITY, MEDICATIONS. ACCUCHECKS STABLE, STARTED PT ON SS INSULIN AND SOME OF HIS HOME MEDICATIONS THAT WE HAVE BEEN ABLE TO OBTAIN. BED ALARM ON FOR FALLS PRECAUTIONS.
[2016-05-20] MEDS ORDERED: ARICEPT10 MG PO (18:50)
[2016-05-20] MEDS ORDERED: ATORVASTATIN CA20 MG PO (18:50)
--- NOTE | 2016-05-20 19:55 | NUR ---
IN BED SLEEPING RESPIRATIONS 24, IVF INFUSING TO L WRIST.
[2016-05-20 23:09] VITALS: BP 144/65
[2016-05-21 02:16] VITALS: BP 137/76
--- NOTE | 2016-05-21 06:36 | NUR ---
ALERT, ORIENTED TO PLACE, FOLLOWS SIMPLE COMMANDS. PLEASANT AND COOPERATIVE THIS SHIFT.
[2016-05-21 07:45] VITALS: BP 141/67
--- NOTE | 2016-05-21 10:31 | NUR ---
PT UP TO CHAIR THIS MORNING FOR BREAKFAST. PT DID C/O NAUSEA WHEN WE FIRST GOT HIM UP, PRN ZOFRAN GIVEN. PT TOLERATED A MINIMAL AMOUNT OF CLEAR LIQUIDS THIS MORNING. PT INCONTINENT OF STOOL AND URINE BUT COOPERATED WHEN UP TO RESTROOM AND THEN TO SIT IN THE CHAIR. AM HYGIENE CARES COMPLETED. PT TOOK AM MEDICATIONS WELL. BLOOD GLUCOSE STABLE, NO INSULIN NEEDED THIS MORNING. FALLS PRECAUTIONS IN PLACE, PERFORMING FREQUENT SAFETY CHECKS.
--- NOTE | 2016-05-21 13:45 | Progress Note ---
Subjective General Pt. is doing better He is more cooperative with care and more oriented Constitutional Denies: Fever, Chills, Sweats. Eyes Denies: Vision Change, Conjunctival Inflammation, Eyelid Inflammation, Redness. ENT Denies: Other (decreased hearing). Respiratory Denies: Cough, Dry, Wheezing, Hemoptysis, Pleuritic Pain, Sputum. Cardiovascular Denies: Chest Pain, Palpitations, Edema. Gastrointestinal Denies: Nausea, Diarrhea (diarrhea resloved). Genitourinary Incontinence. Denies: Dysuria, Frequency, Hematuria. Musculoskeletal Denies: Other (no specific complaints of pain). Skin Rash (skin fold areas improving. ), Lesions. Neurological Weakness, Confusion (weakness improving,less confus). Physical Exam Vital Signs / I&Os Vital Signs Date Time Temp Pulse Resp B/P Pulse O2 O2 Flow FiO2 Ox Delivery Rate 05/21 1100 97.7 20 96 05/21 1026 Room Air 05/21 0745 97.7 71 20 141/67 92 Room Air 05/21 0216 98.1 74 20 137/76 97 Room Air 05/20 2309 98.2 76 22 144/65 96 Room Air 05/20 1807 97.7 70 24 160/67 96 Room Air 05/20 1500 Room Air I&O 05/20 0800 05/20 1600 05/21 0000 Intake Total 998 397 3234 Output Total 503 116 1322 Balance 64 -26 271 General Appearance Alert, not oriented to date HEENT Atraumatic, EOMI, Moist mucous membranes Lungs Clear to auscultation, somewhat decreased breath sounds Cardiovascular Regular rate and rhythm, Normal S1 and S2 Abdomen grossly obese, no tenderness. Extremities No edema, No tenderness Skin erythema in skin folds mardedly decreased. Neurological irreg. gait, needs assistance Psych/Mental Status Confused Assessment and Plan Problem List 1. Pancreatitis Plan amylase and lipase OK. Tolerateing diet. Will recheck in am 2. Dementia Status Chronic Onset Date Unknown Plan Improving with general care. May need increased asistance at home. 3. Dehydration Status Acute Onset Date Unknown Plan resloving. DC IV fluids 4. HYPOTHYROIDISM Plan continue thyroid hormone replacement and follow up as outpaient. E&M Codes Rounding: Obsv-Comp/Moderate/[id number]
--- NOTE | 2016-05-21 13:45 | Progress Note ---
Subjective General Pt. is doing better He is more cooperative with care and more oriented Constitutional Denies: Fever, Chills, Sweats. Eyes Denies: Vision Change, Conjunctival Inflammation, Eyelid Inflammation, Redness. ENT Denies: Other (decreased hearing). Respiratory Denies: Cough, Dry, Wheezing, Hemoptysis, Pleuritic Pain, Sputum. Cardiovascular Denies: Chest Pain, Palpitations, Edema. Gastrointestinal Denies: Nausea, Diarrhea (diarrhea resloved). Genitourinary Incontinence. Denies: Dysuria, Frequency, Hematuria. Musculoskeletal Denies: Other (no specific complaints of pain). Skin Rash (skin fold areas improving. ), Lesions. Neurological Weakness, Confusion (weakness improving,less confus). Physical Exam Vital Signs / I&Os Vital Signs Date Time Temp Pulse Resp B/P Pulse O2 O2 Flow FiO2 Ox Delivery Rate 05/21 1100 97.7 20 96 05/21 1026 Room Air 05/21 0745 97.7 71 20 141/67 92 Room Air 05/21 0216 98.1 74 20 137/76 97 Room Air 05/20 2309 98.2 76 22 144/65 96 Room Air 05/20 1807 97.7 70 24 160/67 96 Room Air 05/20 1500 Room Air I&O 05/20 0800 05/20 1600 05/21 0000 Intake Total 400 438 4370 Output Total 247 625 8700 Balance 64 -26 271 General Appearance Alert, not oriented to date HEENT Atraumatic, EOMI, Moist mucous membranes Lungs Clear to auscultation, somewhat decreased breath sounds Cardiovascular Regular rate and rhythm, Normal S1 and S2 Abdomen grossly obese, no tenderness. Extremities No edema, No tenderness Skin erythema in skin folds mardedly decreased. Neurological irreg. gait, needs assistance Psych/Mental Status Confused Assessment and Plan Problem List 1. Pancreatitis Plan amylase and lipase OK. Tolerateing diet. Will recheck in am 2. Dementia Status Chronic Onset Date Unknown Plan Improving with general care. May need increased asistance at home. 3. Dehydration Status Acute Onset Date Unknown Plan resloving. DC IV fluids 4. HYPOTHYROIDISM Plan continue thyroid hormone replacement and follow up as outpaient. E&M Codes Rounding: Obsv-Comp/Moderate/[id number]
[2016-05-21 14:05] VITALS: BP 136/83
--- NOTE | 2016-05-21 19:01 | NUR ---
END SHIFT NOTE: PT HAS BEEN LETHARGIC TODAY BUT UP TO THE CHAIR FOR MEALS, WHICH HE IS TOLERATING. A FEW SHORT EPISODES OF NAUSEA TODAY WHICH QUICKLY RESOLVED. PT HAVING LIQUID STOOL, INCONTINENT. PT RESISTANT TO VITALS CHECKS PERIODICALLY BUT OTHERWISE COMPLIANT. PLAN TO DC TOMORROW IF LABS ARE STABLE. BED ALARM ON FOR FALLS PRECAUTIONS. IV ACCESS LOST. PER , OKAY TO DC.
[2016-05-21 22:52] VITALS: BP 142/76
--- NOTE | 2016-05-21 23:00 | NUR ---
Patient has been incontinent of stools. He tends not to call for help and takes himself to the toilet. Bed alarm has been turned on for the night.
[2016-05-22 02:38] VITALS: BP 132/70
[2016-05-22 07:00] VITALS: BP 173/79
--- NOTE | 2016-05-22 08:55 | NUR ---
RECEIVED PT UP IN THE CHAIR, AWAKE, ALERT, FORGETFUL BUT EASILY REORIENTED. COOPERATIVE, OBEYS COMMANDS. V/S TAKEN AND RECORDED. ASSESSMENT DONE. PT DENIES ANY PAIN AT THIS TIME. COMPLAINT " I AM HUNGRY" PT STATES. SEEN AND EXAMINED BY DR SANDERS, WITH ORDERS MADE AND CARRIED OUT. DIET CHANGED TO DIABETIC DIET. SANDWICHES GIVE, TOLERATED IT WELL. DUE MEDS GIVEN. NEEDS ATTENDED.
[2016-05-22 10:38] VITALS: BP 158/68
--- NOTE | 2016-05-22 11:13 | Discharge Summary ---
Discharge Summary Report Admit Date 05/19/16 Discharge Date 05/22/16 Admission Diagnosis general malaise and pancreatitis Discharge Diagnosis pancreatitis Brief History The patient is an 80-year-old white male who has developed some increased weakness and also some nausea, stomach upset and some loose stools, particularly today. He apparently had a fall and ended up on the floor at home this afternoon. His called EMS to help him up. She felt, however, that he really was weaker and more confused than he usually is and quite changed from his baseline. He was somewhat oppositional to care and suggestions from his and paramedics that he be transported to [facility] Emergency Department. After a while, however, he acquiesced and allowed the paramedics to get him in the ambulance where they can bring him down to the hospital emergency department. The patient's is not available and other details are not available. Hospital Course Patient was admitted for fall and general malaise. Patient found to have mild pancreatitis. Patient was kept npo and with IVF and began to improve. Patients etiology behind the pancreatitis could not be found definitevely. Patient urged to follow up with his primary care provider within the next two weeks. Patient additionally told to follow up if his symptoms return. Patient is otherwise stable for discharge. General Appearance Alert, Oriented X3, No acute distress HEENT PERRLA Lungs Normal air movement Cardiovascular Regular Rate, Normal S1, Normal S2 Abdomen Soft, No tenderness Skin No Rashes, No Breakdown, No Significant Lesions Neurological Normal speech, Normal tone, Sensation intact, Cranial nerves 3-12 NL Discharge Instructions/Meds - take your home medications - follow up with your primary care provider.
--- NOTE | 2016-05-22 11:13 | Provider's Discharge Care Plan ---
Problem, Goal, Plan Problem List 1. Pancreatitis Instructions: - avoid fatty foods - follow up with your primarcy care provider
--- NOTE | 2016-05-22 11:13 | Provider's Discharge Care Plan ---
Problem, Goal, Plan Problem List 1. Pancreatitis Instructions: - avoid fatty foods - follow up with your primarcy care provider
[2016-05-22] MEDS ORDERED: LOTRIMIN30 GM TOP (12:00)
--- NOTE | 2016-05-22 12:20 | NUR ---
DISCHARGE INSTRUCS., PRESC., GIVEN TO PT AND SON IN LAW. QUESTIONS AND CONCERNS ANSWERED. AT 1227, PT WENT HOME. ASSSITED BY MR BRITTON TO THE LOBBY VIA WHEELCHAIR.
== END 2016-05-22 12:40 | disposition home or self-care (01) ==
LOC: ED SRH 14:47 → ACUTE2 SRH 21:43 → TRANS SRH 21:43 → ACUTE2 SRH 22:11
PROVIDERS: ADMIT Family Medicine
DX: K85.00 Idiopathic acute pancreatitis without necrosis or infection (principal); R11.0 Nausea; R41.0 Disorientation, unspecified; E86.0 Dehydration; R53.1 Weakness; Z91.81 History of falling; E11.9 Type 2 diabetes mellitus without complications; Z79.4 Long term (current) use of insulin; J44.9 Chronic obstructive pulmonary disease, unspecified; I10 Essential (primary) hypertension; F03.90 Unspecified dementia, unspecified severity, without behavioral disturbance, psychotic disturbance, mood disturbance, and anxiety
CPT/HCPCS: 29230; 29246; 29251; 29263; 85244; 90004; 90047; 90074; 90098; 90100; 90616; 91295; 91504; 91505; 92235; 92530; 92610; 92668; 92670; 92760; 92761; 92762; 92763; 92764; 92765; 92766; 92767; 93140; 95059; 95061